=== PATIENT | female | born 1955 | race Caucasian/White ===

== ENCOUNTER 2022-04-01 20:27 | Emergency (ER) | payer MEDICARE, OTHER ==
[2022-04-01 21:57] LABS: ANION GAP 10.5 mEq/L (7-13)
== END 2022-04-01 22:25 | disposition home or self-care (01) ==
LOC: DL.ED 20:27
DX: M79.89 Other specified soft tissue disorders (principal); Z91.048 Other nonmedicinal substance allergy status; Z88.1 Allergy status to other antibiotic agents; Z88.0 Allergy status to penicillin; Z79.899 Other long term (current) drug therapy; Z79.82 Long term (current) use of aspirin
CPT/HCPCS: 36415; 80053; 85025; 85379; 93005; 99283

== ENCOUNTER 2022-05-24 11:44 | Emergency (ER) | payer MEDICARE, OTHER ==
[2022-05-24] MEDS ORDERED: Sodium Chloride 0.9% 1,000 ML IV ONE (14:06)
[2022-05-24 14:50] LABS: ANION GAP 9.6 mEq/L (7-13)
[2022-05-24] MEDS ORDERED: Potassium Chloride 20 MEQ in Premix Bag 1 BAG IV ONE (15:04)
[2022-05-24] MEDS ORDERED: Potassium Chloride 10% 20 MEQ/15 ML Soln 15 ML UD Cup PO ONE (15:05)
[2022-05-24] MEDS ORDERED: Lidocaine 1% 5 ML VIAL INJECT ONE (16:47)
[2022-05-24] MEDS ORDERED: Potassium Chloride 10 MEQ Tab.ER ONE (19:22)
[2022-05-25] MEDS ORDERED: Potassium Chloride 10% 20 MEQ/15 ML Soln 15 ML UD Cup PO ONE (15:05)
== END 2022-05-24 19:30 | disposition home or self-care (01) ==
LOC: DL.ED 11:44
DX: E87.6 Hypokalemia (principal); T50.905A Adverse effect of unspecified drugs, medicaments and biological substances, initial encounter; E78.00 Pure hypercholesterolemia, unspecified; I10 Essential (primary) hypertension; Z88.0 Allergy status to penicillin; Z88.1 Allergy status to other antibiotic agents; Z91.048 Other nonmedicinal substance allergy status; Z79.899 Other long term (current) drug therapy
CPT/HCPCS: 36415; 80048; 83735; 96361; 96365; 96366; 99284; A9270; J3480; J7030